=== PATIENT | female | born 1960 | race Hispanic/Latino ===

== ENCOUNTER → 2020-10-12 | Outpatient (CLI) | payer BC ==
[~2020-10-12] MED LIST: GABAPENTIN300 MG PO; METFORMIN HCL500 MG PO; PRAVASTATIN SOD20 MG PO; PROZAC20 MG PO
== END ==
LOC: MAMMO 09:30
PROVIDERS: ATTEND Internal Medicine
DX: Z12.31 Encounter for screening mammogram for malignant neoplasm of breast (principal)
CPT/HCPCS: 77067

== ENCOUNTER → 2020-12-30 | Outpatient (CLI) | payer BC | LOC: US 07:59 | PROVIDERS: ATTEND Internal Medicine | DX: R74.8 Abnormal levels of other serum enzymes (principal) | CPT/HCPCS: 76700 ==

== ENCOUNTER → 2021-04-28 | Outpatient (CLI) | payer OTHER | LOC: US 07:57 | PROVIDERS: ATTEND Internal Medicine | DX: R10.2 Pelvic and perineal pain (principal) | CPT/HCPCS: 76830; 76856 ==

== ENCOUNTER → 2024-02-18 | Outpatient (REF) | payer OTHER | LOC: US 07:52 | PROVIDERS: ATTEND Family Medicine | DX: R10.9 Unspecified abdominal pain (principal) | CPT/HCPCS: 76700 ==

== ENCOUNTER 2024-03-11 13:18 | Emergency (ER) | payer OTHER ==
[~2024-03-11] VITALS: Ht 144.8 cm; Wt 59.0 kg
[2024-03-11 13:20] VITALS: PULSE 104; RESP 18; TEMP 97.4
[2024-03-11] MEDS: ONDANSETRON HCL INJ 2MG/ML 2ML 2 MG/ML VIAL IV ONE (14:08)
[2024-03-11] MEDS: KETOROLAC TROMETHAMINE 30 MG/ML VIAL IV STA (14:08)
[2024-03-11] MEDS: FAMOTIDINE 20 MG/2 ML VIAL IV ONE (14:08)
[2024-03-11] MEDS: LACTATED RINGER'S 1,000 ML INJ ONE (14:09)
[2024-03-11] MEDS ORDERED: IOPAMIDOL 370 MG/ML 100 ML INFUS..BTL INJ ONE (14:33)
[2024-03-11] MEDS ORDERED: OMEPRAZOLE40 MG PO (15:50)
[2024-03-11] MEDS ORDERED: KETOROLAC TROME10 MG PO (15:50)
[2024-03-11] MEDS ORDERED: STOOL SOFTENER1 EACH PO (15:50)
[2024-03-11] MEDS ORDERED: ONDANSETRON ODT4 MG PO (15:50)
[2024-03-11 16:02] VITALS: BP 146/73; PULSE 74; RESP 18; TEMP 98.3; O2SAT 100
== END 2024-03-11 16:04 | disposition home or self-care (01) ==
LOC: FSED 13:47
DX: R10.32 Left lower quadrant pain (principal); K58.9 Irritable bowel syndrome, unspecified; R53.81 Other malaise; E78.00 Pure hypercholesterolemia, unspecified
CPT/HCPCS: 74177; 80048; 80076; 81003; 85025; 99284; J1885; J2405; J7121; Q9967